=== PATIENT | male | born 1965 | race Caucasian/White ===

== ENCOUNTER 2018-12-29 14:09 | Emergency (ER) | payer OTHER ==
[2018-12-29] MEDS ORDERED: Acetaminophen/oxyCODONE 325-5 MG Tab PO ONE (14:19)
[2018-12-29] MEDS ORDERED: Diphtheria,Pertussis(Acell),Tetanus Vaccine 0.5 ML SDV IM ONE (14:19)
[2018-12-29] MEDS ORDERED: Ibuprofen 600 MG Tab PO ONE (14:19)
[2018-12-29] MEDS ORDERED: Bupivacaine 0.25%/EPINEPHrine 1:200,000 30 ML SDV INJECT ONE (14:20)
[2018-12-29] MEDS ORDERED: Bacitracin Oint 1 GM U/D Packet TOP ONE (14:20)
--- NOTE | 2018-12-29 14:23 | EDM.PDOC ---
ED HPI GENERAL MEDICAL PROBLEM - General Chief Complaint: Laceration Stated Complaint: R LEG CHAINSAW Time Seen by Provider: 12/29/18 14:11 Source of Information: Reports: Patient History Limitations: Reports: No Limitations - History of Present Illness INITIAL COMMENTS - FREE TEXT/NARRATIVE: Josh is a 53 year old male, presents to the ED today with his , accidentally cut right thigh with chain saw prior to arrival. Able to bear weight, flex and extend his leg. DT not up to date. Denies any other injuries. Onset: Today, Sudden ED ROS GENERAL - Review of Systems Review Of Systems: ROS reveals no pertinent complaints other than HPI. ED EXAM, SKIN/RASH Exam: See Below Exam Limited By: No Limitations General Appearance: Alert, WD/WN, Anxious, Mild Distress Head: Atraumatic Neck: Normal Inspection, Supple Respiratory/Chest: No Respiratory Distress Cardiovascular: Normal Peripheral Pulses, Regular Rate, Rhythm Peripheral Pulses: 2+: Dorsalis Pedis (L), Dorsalis Pedis (R) Back Exam: Normal Inspection Extremities: Normal Range of Motion, No Pedal Edema Neurological: Alert, Oriented, CN II-XII Intact Skin: Warm, Wound/Incision (deep laceration to right anterior thigh, 8 cm across , extends proximally under skin approx 3 cm) Location, Skin: Lower Extremity, Right Lymphatic: No Adenopathy (neuro/vasc intact) ED SKIN PROCEDURES - Laceration/Wound Repair Right Thigh Appearance: Subcutaneous, Mildly Contaminated Distal NVT: Neuro & Vascular Intact, No Tendon Injury Local Anesthesia - Bupivicaine (Marcaine): 0.5% with EPI Local Anesthetic Volume: Other (20) Exploration/Debridement/Repair: Wound Explored, Explored to Base, Minimal Debridement, Foreign Material Removed, Wound Margins Revised Lac/Wound length In cm: 8 Suture Size: Other (12 ethilon, 6 4-0 vicryl) Course - Vital Signs Last Recorded V/S: Last Vital Signs Temp 35.6 C 12/29/18 14:22 Pulse 90 12/29/18 14:22 Resp 19 12/29/18 14:22 BP 150/90 H 12/29/18 14:22 Pulse Ox 95 12/29/18 14:22 Josh is a 53 year old male, presents with deep laceration to right thigh from chain saw. Neuro/vasc intact, no evidence of ligamentous/tendon/muscle injury. Suture repair as noted in procedure note after thoroughly irrigated with 1,000 ml of NS and Hebiclens. DT updated. Patient educated on wound care, SR in 10-14 days. Keflex for infection prophylaxis. Percocet for pain if ibuprofen ineffective, narcotic safety and side effects discussed as well as reasons to return to the ED. Patient agreeable and discharged in stable condition. - Orders/Labs/Meds Orders: Active Orders 24 hr Category Date Time Status Vaccines to be Administered [RC] PER UNIT ROUTINE Care 12/29/18 14:19 Active Meds: Medications Discontinued Medications Generic Name Dose Route Start Last Admin Trade Name Freq PRN Reason Stop Dose Admin Bacitracin 3 dose 12/29/18 14:20 12/29/18 14:28 Bacitracin Oint 1 Gm TOP 12/29/18 14:21 3 dose ONETIME ONE Administration Bupivacaine HCl/Epinephrine Bitart 30 ml 12/29/18 14:20 12/29/18 14:44 Marcaine 0.25%/Epinephrine 1:200,000 INJECT 12/29/18 14:21 Not Given ONETIME ONE Bupivacaine HCl/Epinephrine Bitart Confirm 12/29/18 14:24 12/29/18 14:31 Marcaine 0.5%/Epinephrine 1:200,000 Administered 12/29/18 14:25 50 ml Dose Administration 50 ml .ROUTE .STK-MED ONE Diphtheria/Tetanus/Acell Pertussis 0.5 ml 12/29/18 14:19 12/29/18 14:29 Adacel IM 12/29/18 14:20 0.5 ml .ONCE ONE Administration Ibuprofen 600 mg 12/29/18 14:19 12/29/18 14:27 Motrin PO 12/29/18 14:20 600 mg ONETIME ONE Administration Oxycodone/Acetaminophen 2 tab 12/29/18 14:19 12/29/18 14:26 Percocet 325-5 Mg PO 12/29/18 14:20 2 tab ONETIME ONE Administration Departure - Departure Time of Disposition: 15:30 Disposition: Home, Self-Care 01 Condition: Good Clinical Impression: Laceration of leg Qualifiers: Encounter type: initial encounter Laterality: right Qualified Code(s): S81.811A - Laceration without foreign body, right lower leg, initial encounter - Discharge Information Instructions: Laceration Care, Adult Referrals: Jorge Luis Colon MD [Primary Care Provider] - Forms: ED Department Discharge Additional Instructions: Suture removal in 10-14 days, have it checked in clinic in 10 days. Keflex for prevention of infection, start today. Ibuprofen 600 mg every 6 hours for pain/swelling. Percocet for pain as needed as prescribed, do not drive/drink alcohol if you take this. Keep covered for 24 hours. Keep covered during the day after this, let air out at bedtime. Bacitracin twice daily for the first 5 days. Keep leg elevated throughout the day, ice for 20 minutes every 2-4 hours for first 24-48 hours. Return here with any complications. - My Orders Last 24 Hours: My Active Orders 12/29/18 14:19 Vaccines to be Administered [RC] PER UNIT ROUTINE - Assessment/Plan Last 24 Hours: My Active Orders 12/29/18 14:19 Vaccines to be Administered [RC] PER UNIT ROUTINE
[2018-12-29] MEDS ORDERED: Bupivacaine 0.5%/EPINEPHrine 1:200,000 50 ML MDV ONE (14:24)
== END 2018-12-29 15:21 | disposition home or self-care (01) ==
LOC: JP.ED 14:09
DX: S71.111A Laceration without foreign body, right thigh, initial encounter (principal); Z23 Encounter for immunization; W29.3XXA Contact with powered garden and outdoor hand tools and machinery, initial encounter
CPT/HCPCS: 12004; 90471; 90715; 99282; A9270; J3490